=== PATIENT | male | born 1990 | race Caucasian/White ===

== ENCOUNTER 2020-06-15 04:29 | Emergency (ER) | payer MEDICAID ==
[~2020-06-15] VITALS: Ht 177.8 cm; Wt 79.4 kg
[2020-06-15 04:32] VITALS: BP 126/86
[2020-06-15 05:15] VITALS: BP 126/86
== END 2020-06-15 05:16 ==
LOC: MED 04:29
DX: F11.90 Opioid use, unspecified, uncomplicated (principal)
CPT/HCPCS: 99283